=== PATIENT | male | born 1955 | race African-American/Black ===

== ENCOUNTER → 2017-03-26 | Outpatient (CLI) | payer MEDICAID ==
--- NOTE | 2017-03-26 10:30 | RADIOLOGY REPORT (SQ) ---
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 TECHNIQUE: Dynamic and static grayscale images acquired of the abdomen and recorded on PACS. Additio nal selected color Doppler and spectral images recorded. LIMITATIONS: Midline bowel gas FINDINGS: PANCREAS: Not well seen LIVER: Diffuse mild increased echogenicity likely from diffuse hepatocellular disease. No focal mass es. No intrahepatic biliary ductal dilatation LIVER VASCULATURE: Normal directional flow of the main portal vein and hepatic veins. GALLBLADDER: No stones. Normal wall thickness. No pericholecystic fluid. ULTRASOUND-DETECTED GUSTAFSON'S SIGN: Negative. INTRAHEPATIC DUCTS AND COMMON DUCT: CBD and intrahepatic ducts normal caliber. No filling defects. D istal most common duct not well seen due to midline bowel gas INFERIOR VENA CAVA: Normal flow. AORTA: Not well seen RIGHT KIDNEY: Normal size. Normal echogenicity. No solid or suspicious masses. No hydronephros is. No calcifications. LEFT KIDNEY: Post left nephrectomy SPLEEN: Normal size. No solid masses. PERITONEAL AND PLEURAL SPACES: No ascites or effusions. OTHER: No other significant finding. IMPRESSION: Echogenic liver from diffuse hepatocellular disease. No discrete masses. No gallstones. No biliary ductal dilatation Post left nephrectomy TECHNICAL DOCUMENTATION: JOB ID: [id number] [employer]- All Rights Reserved
== END ==
LOC: RAD 07:51
PROVIDERS: ATTEND Internal Medicine Gastroenterology
DX: B18.2 Chronic viral hepatitis C (principal); R94.5 Abnormal results of liver function studies
CPT/HCPCS: 76700

== ENCOUNTER 2017-07-16 14:01 | Emergency (ER) | payer MEDICAID ==
--- NOTE | 2017-07-16 15:17 | ER Document Report ---
ED Substance Abuse / Acc. OD - General Chief Complaint: ETOH Abuse Stated Complaint: ANXIETY Time Seen by Provider: 07/16/17 14:08 Mode of Arrival: Medic Information source: Patient Notes: Patient is a 62-year-old alcoholic who comes in today via EMS for left foot pain. Patient states that he fell last night, does not remember the injury but has left foot pain. He says "I do not know if I fell or if I kicked something. " Patient admits to drinking multiple 40s today. He apparently told EMS that he was anxious but here is just asking for something to eat and stating "I need to eat and go home and watch TV." TRAVEL OUTSIDE OF THE [place] IN LAST 30 DAYS: No - Related Data Allergies/Adverse Reactions: No Known Allergies Allergy (Verified 08/26/12 11:13) Past Medical History - General Information source: Patient - Social History Smoking Status: Current Every Day Smoker Chew tobacco use (# tins/day): No Frequency of alcohol use: Heavy Drug Abuse: None Family History: Reviewed & Not Pertinent Patient has suicidal ideation: No Patient has homicidal ideation: No - Past Medical History Cardiac Medical History: Reports: Hx Hypertension Neurological Medical History: Reports: Hx Cerebrovascular Accident Renal/ Medical History: Denies: Hx Peritoneal Dialysis GI Medical History: Reports: Hx Hepatitis - HEP-C Musculoskeltal Medical History: Reports Hx Gout Infectious Medical History: Reports: Hx Hepatitis - HEP-C Past Surgical History: Reports: Hx Kidney (Renal Surgery) - LEFT NEPHRECTOMY-- DONATED KIDNEY - Immunizations Hx Diphtheria, Pertussis, Tetanus Vaccination: No Review of Systems - Review of Systems Constitutional: See HPI EENT: No symptoms reported Cardiovascular: No symptoms reported Respiratory: No symptoms reported Gastrointestinal: No symptoms reported Genitourinary: No symptoms reported Male Genitourinary: No symptoms reported Musculoskeletal: See HPI Skin: No symptoms reported Hematologic/Lymphatic: No symptoms reported Neurological/Psychological: No symptoms reported Physical Exam - Vital signs Vitals: Resp Pulse Ox 19 95 07/16/17 14:19 07/16/17 14:19 - Notes Notes: PHYSICAL EXAMINATION: GENERAL: Obviously intoxicated, smells of alcohol, but in no acute distress. HEAD: Atraumatic, normocephalic. EYES: Pupils equal round and reactive to light, extraocular movements intact, sclera anicteric, conjunctiva are normal. ENT: ear canals without erythema or foreign body, TMs pearly encarnacion with good bony landmarks, nares patent, oropharynx clear without exudates. Moist mucous membranes. NECK: Normal range of motion, supple without lymphadenopathy LUNGS: CTAB and equal. No wheezes rales or rhonchi. HEART: Regular rate and rhythm without murmurs ABDOMEN: Soft, no tenderness. No guarding, no rebound BACK: no vertebral tenderness, normal ROM GI/: no CVA tenderness EXTREMITIES: Tender to left lateral foot and left second third and fourth digits to the foot, otherwise normal range of motion, no pitting edema. No cyanosis. NEUROLOGICAL: Cranial nerves grossly intact. Normal sensory/motor exams. PSYCH: Intoxicated, but understandable and pleasant SKIN: Warm, Dry, normal turgor, no rashes or lesions noted Course - Re-evaluation Re-evalutation: 07/16/17 18:56 X-ray of the left foot negative for any acute pathology, sister is here to take him home and he is stable for discharge with normal vital signs. We did feed him here. He ate an entire meal without any issues. - Vital Signs Vital signs: Temp Pulse Resp BP Pulse Ox 97.6 F 18 129/93 H 97 07/16/17 15:25 07/16/17 15:25 07/16/17 15:25 07/16/17 15:25 - Laboratory Laboratory results interpreted by me: 07/16/17 13:40 Serum Alcohol 371 H* Discharge - Discharge Clinical Impression: Alcohol abuse, Left foot pain Condition: Stable Disposition: HOME, SELF-CARE Additional Instructions: Return immediately for any new or worsening symptoms. Follow up with primary care provider, call tomorrow to make followup appointment.
[2017-07-16 15:27] VITALS: BP 129/93
--- NOTE | 2017-07-16 15:29 | RADIOLOGY REPORT (SQ) ---
EXAM DESCRIPTION: FOOT LEFT COMPLETE COMPLETED DATE/TIME: 07/16/2017 2:58 pm REASON FOR STUDY: foot injury, pain COMPARISON: 07/06/2012 left foot films NUMBER OF VIEWS: Three views. TECHNIQUE: AP, lateral and oblique radiographic images acquired of the left foot. LIMITATIONS: None. FINDINGS: MINERALIZATION: Osteopenic BONES: No acute fracture or dislocation. No worrisome bone lesions. JOINTS: No effusions. SOFT TISSUES: No soft tissue swelling. No foreign body. OTHER: No other significant finding. IMPRESSION: No acute fracture TECHNICAL DOCUMENTATION: JOB ID: [id number] [employer]- All Rights Reserved Reading location - IP/workstation name: [email or web address]
== END 2017-07-16 15:30 | disposition home or self-care (01) ==
LOC: ER 14:01
DX: F10.10 Alcohol abuse, uncomplicated (principal); M79.672 Pain in left foot; F41.9 Anxiety disorder, unspecified; F17.200 Nicotine dependence, unspecified, uncomplicated
CPT/HCPCS: 36415; 80307; 99284

== ENCOUNTER 2017-08-13 21:19 | Emergency (ER) | payer MEDICAID, OTHER ==
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
--- NOTE | 2017-08-13 21:51 | RADIOLOGY REPORT (SQ) ---
EXAM DESCRIPTION: CT CERVICAL SPINE WITHOUT COMPLETED DATE/TIME: 08/13/2017 9:37 pm REASON FOR STUDY: fall, pain COMPARISON: None. TECHNIQUE: Axial images acquired through the cervical spine without intravenous contrast. Images re viewed with lung, soft tissue and bone windows. Reconstructed coronal and sagittal MPR images review ed. Images stored on PACS. All CT scanners at this facility use dose modulation, iterative reconstruction, and/or weight based d osing when appropriate to reduce radiation dose to as low as reasonably achievable (ALARA). [facility]: Dose Right [facility]: CareDose [facility]: Dose Right [facility]: Teradose 4D [facility]: [employer] RADIATION DOSE: CT Rad equipment meets quality standard of care and radiation dose reduction techniq ues were employed. CTDIvol: 14.8 mGy. DLP: 331 mGy-cm. mGy. LIMITATIONS: None. FINDINGS: ALIGNMENT: Anatomic. MINERALIZATION: Normal. VERTEBRAL BODIES: No fractures or dislocation. DISCS: Multilevel disc space narrowing with osteophytes. FACETS, LATERAL MASSES, POSTERIOR ELEMENTS: Facet arthropathy. No fractures. No dislocation. No ac crow findings. HARDWARE: None in the spine. VISUALIZED RIBS: No fractures. LUNG APICES AND SOFT TISSUES: No significant or acute findings. OTHER: No other significant finding. IMPRESSION: CHRONIC DEGENERATIVE CHANGES. NO ACUTE FINDINGS. TECHNICAL DOCUMENTATION: JOB ID: [id number] Quality ID # [id number]: Final reports with documentation of one or more dose reduction techniques (e.g., Au tomated exposure control, adjustment of the mA and/or kV according to patient size, use of iterative reconstruction technique) 2010 [employer]- All Rights Reserved Reading location - IP/workstation name: [email or web address]
--- NOTE | 2017-08-13 21:53 | RADIOLOGY REPORT (SQ) ---
EXAM DESCRIPTION: CT HEAD WITHOUT COMPLETED DATE/TIME: 08/13/2017 9:37 pm REASON FOR STUDY: fall, hematoma COMPARISON: 08/26/2012 TECHNIQUE: Axial images acquired through the brain without intravenous contrast. Images reviewed wi th bone, brain and subdural windows. Additional sagittal and coronal reconstructions were generated. Images stored on PACS. All CT scanners at this facility use dose modulation, iterative reconstruction, and/or weight based d osing when appropriate to reduce radiation dose to as low as reasonably achievable (ALARA). [facility]: Dose Right [facility]: CareDose [facility]: Dose Right [facility]: Teradose 4D [facility]: Smart [employer] RADIATION DOSE: CT Rad equipment meets quality standard of care and radiation dose reduction techniq ues were employed. CTDIvol: 53.2 mGy. DLP: 964 mGy-cm. mGy. LIMITATIONS: None. FINDINGS: VENTRICLES: Normal size and contour. CEREBRUM: No masses. No hemorrhage. No midline shift. There is an area of encephalomalacia in the occipital lobe on the right. Small areas of low density in the white matter most likely chronic small vessel ischemic changes. CEREBELLUM: No masses. No hemorrhage. No alteration of density. No evidence for acute infarction. EXTRAAXIAL SPACES: No fluid collections. No masses. ORBITS AND GLOBE: No intra- or extraconal masses. Normal contour of globe without masses. CALVARIUM: No fracture. PARANASAL SINUSES: No fluid or mucosal thickening. SOFT TISSUES: Left posterior parietal scalp hematoma. OTHER: No other significant finding. IMPRESSION: Scalp hematoma. Old right occipital infarct. Mild chronic microvascular ischemia with no acute imaging findings in the brain. EVIDENCE OF ACUTE STROKE: NO. COMMENT: Quality ID # [id number]: Final reports with documentation of one or more dose reduction techniques (e.g., Automated exposure control, adjustment of the mA and/or kV according to patient size, use of iterative reconstruction technique) TECHNICAL DOCUMENTATION: JOB ID: [id number] [employer]- All Rights Reserved Reading location - IP/workstation name: [email or web address]
[2017-08-13 22:26] LABS: HEMATOCRIT 40.5 % (37.9-51.0); HEMOGLOBIN 13.7 g/dL (13.5-17.0); MEAN CORPUSCULAR HEMOGLOBIN 33.3 pg (27.0-33.4); MEAN CORPUSCULAR HGB CONC 33.9 g/dL (32.0-36.0); MEAN CORPUSCULAR VOLUME 98 fl (80-97); RED BLOOD COUNT 4.12 10^6/uL (4.35-5.55); RED CELL DISTRIBUTION WIDTH 14.6 % (11.5-14.0); WHITE BLOOD COUNT 4.2 10^3/uL (4.0-10.5)
[2017-08-13 22:45] LABS: INTERNATIONAL RATION (INR) 1.03
[2017-08-13 22:53] LABS: PLATELET COUNT 56 10^3/uL (150-450)
[2017-08-13 22:55] LABS: ALANINE AMINOTRANSFERASE 71 U/L (21-72); ALBUMIN 3.9 g/dL (3.5-5.0); ALKALINE PHOSPHATASE 95 U/L (38-126); ANION GAP 15 (5-19); ASPARTATE AMINO TRANSFERASE 158 U/L (17-59); BILIRUBIN,DIRECT 0.7 mg/dL (0.0-0.4); BLOOD UREA NITROGEN 24 mg/dL (7-20); CALCIUM 9.2 mg/dL (8.4-10.2); CARBON DIOXIDE 25 mmol/L (22-30); CHLORIDE 100 mmol/L (98-107); GLUCOSE 91 mg/dL (75-110); POTASSIUM 3.8 mmol/L (3.6-5.0); SODIUM 140.1 mmol/L (137-145); TOTAL PROTEIN 7.3 g/dL (6.3-8.2)
[2017-08-13 22:58] LABS: ABSOLUTE LYMPHOCYTES# (MANUAL) 2.1 10^3/uL (0.5-4.7); ABSOLUTE MONOCYTES # (MANUAL) 0.5 10^3/uL (0.1-1.4); ABSOLUTE NEUTROPHILS# (MANUAL) 1.6 10^3/uL (1.7-8.2); BASOPHILS % (MANUAL) 2 % (0-2); EOSINOPHILS % (MANUAL) 0 % (0-6); LYMPHOCYTES % (MANUAL) 42 % (13-45); MONOCYTES % (MANUAL) 12 % (3-13); PLATELET COMMENT DECREASED; SEGMENTED NEUTROPHILS % (MAN) 37 % (42-78); TOTAL CELLS COUNTED 100
[2017-08-13 23:00] LABS: HYPOCHROMASIA 1+; POLYCHROMASIA SLIGHT
[2017-08-13] MEDS ORDERED: ACETAMINOPHEN 325 MG TABLET PO ONE (23:12)
[2017-08-13] MEDS ORDERED: NORMAL SALINE 500 ML IV ONE (23:23)
[2017-08-13] MEDS ORDERED: THIAMINE HCL 100 MG TABLET PO ONE (23:46)
[2017-08-13] MEDS ORDERED: FOLIC ACID 1 MG TABLET PO ONE (23:46)
[2017-08-14 00:58] VITALS: BP 136/80
== END 2017-08-14 00:57 | disposition home or self-care (01) ==
LOC: ER 21:19
DX: S09.90XA Unspecified injury of head, initial encounter (principal); N28.9 Disorder of kidney and ureter, unspecified; F10.920 Alcohol use, unspecified with intoxication, uncomplicated; W01.0XXA Fall on same level from slipping, tripping and stumbling without subsequent striking against object, initial encounter; Y92.009 Unspecified place in unspecified non-institutional (private) residence as the place of occurrence of the external cause; I10 Essential (primary) hypertension; Z86.19 Personal history of other infectious and parasitic diseases; Z90.5 Acquired absence of kidney
CPT/HCPCS: 99284; 96360; 36415; 80307; 85025; 85610; 85730; 80053; 70450; 72125; J3490 ×3; J7040

== ENCOUNTER 2017-10-26 17:38 | Emergency (ER) | payer MEDICAID ==
[2017-10-26 17:54] VITALS: BP 156/102
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
[2017-10-26 19:24] LABS: ABSOLUTE BASOPHILS # (AUTO) 0.1 10^3/uL (0.0-0.2); ABSOLUTE EOSINOPHILS # (AUTO) 0.2 10^3/uL (0.0-0.6); ABSOLUTE LYMPHOCYTES (AUTO) 1.8 10^3/uL (0.5-4.7); ABSOLUTE MONOCYTES (AUTO) 0.6 10^3/uL (0.1-1.4); ABSOLUTE NEUT (AUTO) 1.1 10^3/uL (1.7-8.2); BASOPHILS % (AUTO) 2.5 % (0-2); EOSINOPHILS % (AUTO) 4.3 % (0-6); HEMATOCRIT 42.7 % (37.9-51.0); HEMOGLOBIN 14.8 g/dL (13.5-17.0); LYMPHOCYTES % (AUTO) 47.4 % (13-45); MEAN CORPUSCULAR HEMOGLOBIN 33.7 pg (27.0-33.4); MEAN CORPUSCULAR HGB CONC 34.6 g/dL (32.0-36.0); MEAN CORPUSCULAR VOLUME 97 fl (80-97); MONOCYTES % (AUTO) 15.6 % (3-13); RED BLOOD COUNT 4.39 10^6/uL (4.35-5.55); RED CELL DISTRIBUTION WIDTH 14.3 % (11.5-14.0); SEGMENTED NEUTROPHILS % (AUTO) 30.2 % (42-78); TOTAL CELLS COUNTED % (AUTO) 100 %; WHITE BLOOD COUNT 3.7 10^3/uL (4.0-10.5)
--- NOTE | 2017-10-26 19:28 | RADIOLOGY REPORT (SQ) ---
EXAM DESCRIPTION: CT HEAD WITHOUT COMPLETED DATE/TIME: 10/26/2017 7:13 pm REASON FOR STUDY: concern for subdural COMPARISON: 08/13/2017 TECHNIQUE: Axial images acquired through the brain without intravenous contrast. Images reviewed wi th bone, brain and subdural windows. Additional sagittal and coronal reconstructions were generated. Images stored on PACS. All CT scanners at this facility use dose modulation, iterative reconstruction, and/or weight based d osing when appropriate to reduce radiation dose to as low as reasonably achievable (ALARA). [facility]: Dose Right [facility]: CareDose [facility]: Dose Right [facility]: Teradose 4D [facility]: [employer] RADIATION DOSE: CT Rad equipment meets quality standard of care and radiation dose reduction techniq ues were employed. CTDIvol: 53.2 mGy. DLP: 1017 mGy-cm. mGy. LIMITATIONS: None. FINDINGS: VENTRICLES: Mild ex vacuo dilatation. CEREBRUM: No masses. No hemorrhage. No midline shift. Right occipital encephalomalacia, stable. A reas of low density in the white matter most likely due to chronic micro-vascular ischemic change. N o evidence for acute infarction. CEREBELLUM: No masses. No hemorrhage. No alteration of density. No evidence for acute infarction. EXTRAAXIAL SPACES: Mild age-related involutional change. No fluid collections. No masses. ORBITS AND GLOBE: No intra- or extraconal masses. Normal contour of globe without masses. CALVARIUM: No fracture. PARANASAL SINUSES: No fluid or mucosal thickening. SOFT TISSUES: No mass or hematoma. OTHER: No other significant finding. IMPRESSION: No evidence of calvarial injury or intracranial hemorrhage. Table background of right o ccipital encephalomalacia on a background of mild microvascular and involutional changes. EVIDENCE OF ACUTE STROKE: NO. TECHNICAL DOCUMENTATION: JOB ID: [id number] Quality ID # [id number]: Final reports with documentation of one or more dose reduction techniques (e.g., Au tomated exposure control, adjustment of the mA and/or kV according to patient size, use of iterative reconstruction technique) 2010 [employer]- All Rights Reserved Reading location - IP/workstation name: [email or web address]
[2017-10-26 19:42] LABS: ALANINE AMINOTRANSFERASE 69 U/L (21-72); ALBUMIN 3.9 g/dL (3.5-5.0); ALKALINE PHOSPHATASE 145 U/L (38-126); ANION GAP 14 (5-19); ASPARTATE AMINO TRANSFERASE 178 U/L (17-59); BILIRUBIN,DIRECT 0.8 mg/dL (0.0-0.4); BILIRUBIN,TOTAL 1.1 mg/dL (0.2-1.3); BLOOD UREA NITROGEN 5 mg/dL (7-20); CALCIUM 8.6 mg/dL (8.4-10.2); CARBON DIOXIDE 30 mmol/L (22-30); CHLORIDE 106 mmol/L (98-107); GLUCOSE 85 mg/dL (75-110); SODIUM 149.8 mmol/L (137-145); TOTAL PROTEIN 7.9 g/dL (6.3-8.2)
[2017-10-26 19:55] LABS: ALCOHOL 340 mg/dL (NONE DETECTED)
--- NOTE | 2017-10-26 20:02 | ER Document Report ---
ED Headache - General Chief Complaint: Headache Stated Complaint: HEADACHE Time Seen by Provider: 10/26/17 18:53 Mode of Arrival: Ambulatory Information source: Patient TRAVEL OUTSIDE OF THE [place] IN LAST 30 DAYS: No - HPI Patient complains to provider of: Headache Onset: Yesterday Onset was: Gradual Timing: Still present Quality of pain: Achy, Fullness Severity: Mild Associated symptoms: None Notes: Patient is a 62-year-old male presenting to the emergency room today complaining of frontal headache 2 days duration, he does report a fall recently and has a history of alcohol abuse, he denies any blurred vision, no nausea or vomiting, no chest pain or shortness of breath, denies any neck pain as well, no numbness or tingling in his extremities - Related Data Allergies/Adverse Reactions: No Known Allergies Allergy (Verified 10/26/17 17:42) Past Medical History - General Information source: Patient - Social History Smoking Status: Current Every Day Smoker Frequency of alcohol use: Heavy Drug Abuse: Marijuana Family History: Reviewed & Not Pertinent Patient has suicidal ideation: No Patient has homicidal ideation: No - Past Medical History Cardiac Medical History: Reports: Hx Hypertension Neurological Medical History: Reports: Hx Cerebrovascular Accident Renal/ Medical History: Denies: Hx Peritoneal Dialysis GI Medical History: Reports: Hx Hepatitis - HEP-C Musculoskeletal Medical History: Reports Hx Gout Infectious Medical History: Reports: Hx Hepatitis - HEP-C Past Surgical History: Reports: Hx Kidney (Renal Surgery) - LEFT NEPHRECTOMY-- DONATED KIDNEY - Immunizations Hx Diphtheria, Pertussis, Tetanus Vaccination: No Review of Systems - Review of Systems Constitutional: No symptoms reported EENT: No symptoms reported Cardiovascular: No symptoms reported Respiratory: No symptoms reported Gastrointestinal: No symptoms reported Genitourinary: No symptoms reported Male Genitourinary: No symptoms reported Musculoskeletal: No symptoms reported Skin: No symptoms reported Hematologic/Lymphatic: No symptoms reported Neurological/Psychological: Headaches -: Yes All other systems reviewed and negative Physical Exam - Vital signs Vitals: Temp Pulse Resp BP Pulse Ox 98.7 F 85 14 156/102 H 98 10/26/17 17:49 10/26/17 17:49 10/26/17 17:49 10/26/17 17:49 10/26/17 17:49 Interpretation: Normal - General General appearance: Alert In distress: None Notes: EtOH on breath - HEENT Head: Normocephalic, Atraumatic Eyes: Normal Pupils: PERRL - Respiratory Respiratory status: No respiratory distress Chest status: Nontender Breath sounds: Normal Chest palpation: Normal - Cardiovascular Rhythm: Regular Heart sounds: Normal auscultation Murmur: No - Abdominal Inspection: Normal Distension: No distension Bowel sounds: Normal Tenderness: Nontender Organomegaly: No organomegaly - Back Back: Normal, Nontender - Extremities General upper extremity: Normal inspection, Nontender, Normal color, Normal ROM , Normal temperature General lower extremity: Normal inspection, Nontender, Normal color, Normal ROM , Normal temperature, Normal weight bearing. No: Liliya's sign - Neurological Neuro grossly intact: Yes Cognition: Normal Orientation: AAOx4 Fani Coma Scale Eye Opening: Spontaneous [place] Coma Scale Verbal: Oriented Fani Coma Scale Motor: Obeys Commands Fani Coma Scale Total: 15 Speech: Normal Motor strength normal: LUE, RUE, LLE, RLE Sensory: Normal - Psychological Associated symptoms: Normal affect, Normal mood - Skin Skin Temperature: Warm Skin Moisture: Dry Skin Color: Normal Course - Re-evaluation Re-evalutation: 10/26/17 20:05 Notified by nursing staff that patient eloped from the department prior to completion of treatment - Vital Signs Vital signs: Temp Pulse Resp BP Pulse Ox 98.7 F 85 14 156/102 H 98 10/26/17 17:49 10/26/17 17:49 10/26/17 17:49 10/26/17 17:49 10/26/17 17:49 - Laboratory Result Diagrams: 10/26/17 19:01 10/26/17 19:01 Laboratory results interpreted by me: 10/26/17 10/26/17 10/26/17 19:01 19:01 19:01 WBC 3.7 L MCH 33.7 H RDW 14.3 H Plt Count 97 L Seg Neutrophils % 30.2 L Lymphocytes % 47.4 H Monocytes % 15.6 H Basophils % 2.5 H Absolute Neutrophils 1.1 L Sodium 149.8 H BUN 5 L Direct Bilirubin 0.8 H AST 178 H Alkaline Phosphatase 145 H Ammonia < 8.7 L Serum Alcohol 340 H* - Diagnostic Test Radiology reviewed: Image reviewed, Reports reviewed Discharge - Discharge Disposition: ELOPED
[2017-10-26 20:03] LABS: PLATELET COUNT 97 10^3/uL (150-450)
== END 2017-10-26 20:00 | disposition left against medical advice (07) ==
LOC: ER 17:38
DX: R51 Headache (principal); F17.200 Nicotine dependence, unspecified, uncomplicated; I10 Essential (primary) hypertension; Z86.19 Personal history of other infectious and parasitic diseases
CPT/HCPCS: 36415; 70450; 80053; 80307; 82140; 85025; 85652; 86140; 99281

== ENCOUNTER 2018-02-24 15:57 | Emergency (ER) | payer MEDICAID ==
[2018-02-24] MEDS ORDERED: INDOMETHACIN 50 MG CAPSULE PO ONE (17:14)
--- NOTE | 2018-02-24 17:18 | ER Document Report ---
HPI - HPI Time Seen by Provider: 02/24/18 17:02 Pain Level: 5 Notes: Patient is a 62-year-old male who presents with chief complaint of left second toe pain. He reports the pain started just a few hours prior to arrival. Patient reports he has been drinking a lot of alcohol. He has two family members at the bedside with him. He reports he thinks he is having a flareup of his gout. He denies any other symptoms to include fever. Denies any trauma to the area. - REPRODUCTIVE Reproductive: DENIES: : - DERM Skin Color: Normal Past Medical History - General Information source: Patient - Social History Smoking Status: Current Every Day Smoker Chew tobacco use (# tins/day): No Frequency of alcohol use: Heavy Drug Abuse: None Family History: Reviewed & Not Pertinent Patient has suicidal ideation: No Patient has homicidal ideation: No - Past Medical History Cardiac Medical History: Reports: Hx Hypertension Neurological Medical History: Reports: Hx Cerebrovascular Accident Renal/ Medical History: Denies: Hx Peritoneal Dialysis GI Medical History: Reports: Hx Hepatitis - HEP-C Musculoskeletal Medical History: Reports Hx Gout Infectious Medical History: Reports: Hx Hepatitis - HEP-C Past Surgical History: Reports: Hx Kidney (Renal Surgery) - LEFT NEPHRECTOMY--DONATED KIDNEY - Immunizations Hx Diphtheria, Pertussis, Tetanus Vaccination: No Vertical Provider Document - CONSTITUTIONAL Notes: PHYSICAL EXAMINATION: GENERAL: Well-appearing, well-nourished and in no acute distress. HEAD: Atraumatic, normocephalic. EYES: Pupils equal round extraocular movements intact, conjunctiva are normal. ENT: Nares patent NECK: Normal range of motion LUNGS: No respiratory distress Musculoskeletal: Normal range of motion NEUROLOGICAL: Normal speech, normal gait. PSYCH: Normal mood, normal affect. SKIN: Warm, Dry, normal turgor, no rashes or lesions noted. Erythema and swelling noted to left second digit. Pain with palpation to left second digit. - INFECTION CONTROL TRAVEL OUTSIDE OF THE [place] IN LAST 30 DAYS: No Course - Re-evaluation Re-evalutation: Examination as well as history of illness is most consistent with acute gout flareup. Patient will be started on indomethacin. Patient and family members at bedside are agreeable to this plan. - Vital Signs Vital signs: Temp Pulse Resp BP Pulse Ox 98.5 F 88 15 150/107 H 98 02/24/18 16:38 02/24/18 16:38 02/24/18 16:38 02/24/18 16:38 02/24/18 16:38 Discharge - Discharge Clinical Impression: Gout Qualifiers: Gout site: unspecified site Gout etiology: unspecified cause Chronicity: acute Qualified Code(s): M10.9 - Gout, unspecified Condition: Stable Disposition: HOME, SELF-CARE Additional Instructions: Gout You have been diagnosed as having gout. Gout is a problem caused by an excess of uric acid, a natural chemical found in the body. The cause of this disease is unknown. Gout arthritis occurs when crystals of uric acid form in the joints. The big toe is the most common joint involved, but any joint can become affected. Persons with gout may also form uric acid kidney stones, resulting in flank pain and blood in the urine. Nodules of uric acid may form under the skin. The first step of treatment is to decrease the inflammation in the joint with antiinflammatory medication. Medication to lower the uric acid level in the blood may then be prescribed. This medication should be taken regularly, as any sudden change in dosage may provoke an attack of gout. Some foods, such as red meat, can provoke an attack in some gout sufferers. Call the doctor if new symptoms arise, or if you do not improve. Gout Diet Changing your diet can decrease the uric acid in your blood. High levels of uric acid cause gouty arthritis and uric acid kidney stones. If you have gout, you should avoid meats that are high in purine. Meat products to avoid include liver, kidneys, and brains. In general, poultry is better than red meats. Seafoods to avoid include anchovies, sardines, [place], mackerel, and scallops. In addition to limiting purine-rich foods, people with gout should limit protein intake to 10-15% of total calories. Carbohydrate intake should be around 50% of total daily calories. Limit fat intake to 30% of total daily calories. Cholesterol intake should be less than 300 mg/day. Maintain or achieve a healthy body weight. Weight loss should be gradual. Rapid weight loss can actually increase uric acid levels temporarily. Alcohol, especially beer, should be avoided. Get plenty of fluids. This dilutes urinary uric acid, and helps prevent uric acid kidney stones. Drink eight to twelve cups of water daily. Prescriptions: Indomethacin [Indocin 50 mg Capsule] 50 mg PO TID #30 capsule
[2018-02-24 17:41] VITALS: BP 152/104
== END 2018-02-24 17:37 | disposition home or self-care (01) ==
LOC: ER 15:57
DX: M10.9 Gout, unspecified (principal); M25.572 Pain in left ankle and joints of left foot; F17.200 Nicotine dependence, unspecified, uncomplicated; I10 Essential (primary) hypertension; Z86.73 Personal history of transient ischemic attack (TIA), and cerebral infarction without residual deficits; Z86.19 Personal history of other infectious and parasitic diseases
CPT/HCPCS: 99283; J3490

== ENCOUNTER 2018-06-12 14:31 | Emergency (ER) | payer MEDICAID ==
[2018-06-12 15:19] VITALS: BP 133/65
[2018-06-12 15:28] LABS: ABSOLUTE MONOCYTES (AUTO) 0.4 10^3/uL (0.1-1.4); BASOPHILS % (AUTO) 1.2 % (0-2); EOSINOPHILS % (AUTO) 1.2 % (0-6); HEMATOCRIT 38.8 % (37.9-51.0); HEMOGLOBIN 13.3 g/dL (13.5-17.0); LYMPHOCYTES % (AUTO) 28.5 % (13-45); MEAN CORPUSCULAR HEMOGLOBIN 33.6 pg (27.0-33.4); MEAN CORPUSCULAR HGB CONC 34.3 g/dL (32.0-36.0); MEAN CORPUSCULAR VOLUME 98 fl (80-97); MONOCYTES % (AUTO) 11.1 % (3-13); RED BLOOD COUNT 3.96 10^6/uL (4.35-5.55); RED CELL DISTRIBUTION WIDTH 13.6 % (11.5-14.0); TOTAL CELLS COUNTED % (AUTO) 100 %; WHITE BLOOD COUNT 3.4 10^3/uL (4.0-10.5)
[2018-06-12 15:47] LABS: ALANINE AMINOTRANSFERASE 60 U/L (21-72); ALBUMIN 3.4 g/dL (3.5-5.0); ALCOHOL 281 mg/dL (NONE DETECTED); ALKALINE PHOSPHATASE 209 U/L (38-126); ANION GAP 12 (5-19); ASPARTATE AMINO TRANSFERASE 227 U/L (17-59); BILIRUBIN,DIRECT 1.5 mg/dL (0.0-0.4); BILIRUBIN,TOTAL 2.2 mg/dL (0.2-1.3); BLOOD UREA NITROGEN 10 mg/dL (7-20); CALCIUM 8.7 mg/dL (8.4-10.2); CARBON DIOXIDE 26 mmol/L (22-30); CHLORIDE 102 mmol/L (98-107); GLUCOSE 133 mg/dL (75-110); POTASSIUM 3.8 mmol/L (3.6-5.0); SODIUM 139.9 mmol/L (137-145); TOTAL PROTEIN 7.7 g/dL (6.3-8.2)
[2018-06-12 15:58] LABS: PLATELET COUNT 38 10^3/uL (150-450)
--- NOTE | 2018-06-12 18:35 | ER Document Report ---
Entered by NBA DOMINGUEZ SCRIBE 06/12/18 1448 Acting as scribe for:JOSS JURADO DO ED General - General Chief Complaint: ETOH Abuse Stated Complaint: WEAKNESS Time Seen by Provider: 06/12/18 14:37 Mode of Arrival: Ambulatory Information source: Patient Notes: 62-year-old male who presents to the emergency department today with complaints of bilateral leg weakness. The patient's only complaint is that for the last few days, when he is walking, sometimes his "legs give out". Patient states he has not hit his head during these falls. EMS stated that he was able to ambulate to the squad without difficulty. EMS also reported that they believe if they would have had food to give the patient, he likely would not have wanted to come to the emergency department as it appeared his main concern for them was his hunger. TRAVEL OUTSIDE OF THE [place] IN LAST 30 DAYS: No - Related Data Allergies/Adverse Reactions: No Known Allergies Allergy (Verified 02/24/18 15:58) Past Medical History - General Information source: Patient - Social History Smoking Status: Current Every Day Smoker Cigarette use (# per day): Yes Frequency of alcohol use: Heavy Drug Abuse: None Lives with: Family Family History: Reviewed & Not Pertinent Patient has suicidal ideation: No Patient has homicidal ideation: No - Past Medical History Cardiac Medical History: Reports: Hx Hypertension Neurological Medical History: Reports: Hx Cerebrovascular Accident Renal/ Medical History: Denies: Hx Peritoneal Dialysis GI Medical History: Reports: Hx Hepatitis - HEP-C Musculoskeletal Medical History: Reports Hx Gout Infectious Medical History: Reports: Hx Hepatitis - HEP-C Past Surgical History: Reports: Hx Kidney (Renal Surgery) - LEFT NEPHRECTOMY-- DONATED KIDNEY - Immunizations Hx Diphtheria, Pertussis, Tetanus Vaccination: No Review of Systems - Review of Systems Constitutional: No symptoms reported EENT: No symptoms reported Cardiovascular: No symptoms reported Respiratory: No symptoms reported Gastrointestinal: No symptoms reported Genitourinary: No symptoms reported Male Genitourinary: No symptoms reported Musculoskeletal: See HPI, Other - bilateral leg weakness Skin: No symptoms reported Hematologic/Lymphatic: No symptoms reported Neurological/Psychological: No symptoms reported -: Yes All other systems reviewed and negative Physical Exam - Vital signs Vitals: Temp Pulse Resp BP Pulse Ox 98.0 F 85 16 133/65 H 98 06/12/18 14:39 06/12/18 14:39 06/12/18 14:39 06/12/18 14:39 06/12/18 14:39 - Notes Notes: PHYSICAL EXAM GENERAL: Alert, interacts well. No acute distress. HEAD: Normocephalic, atraumatic. EYES: Pupils equal, round, and reactive to light. Extraocular movements intact. ENT: Oral mucosa moist, tongue midline. NECK: Full range of motion. Supple. Trachea midline. LUNGS: Upper lung justice are rhonchorous with wheezing bilaterally with forced expiration. Lower lung justice are clear bilaterally. No respiratory distress. HEART: Regular rate and rhythm. No murmurs, gallops, or rubs. ABDOMEN: Soft, non-tender. Non-distended. Bowel sounds present in all 4 quadrants. No guarding, rigidity, or rebound. EXTREMITIES: Moves all 4 extremities spontaneously. No edema, radial and dorsalis pedis pulses 2/4 bilaterally. No cyanosis. NEUROLOGICAL: Alert and oriented x3. Normal speech. PSYCH: Normal affect, normal mood. SKIN: Warm, dry, normal turgor. Large thickened toenails. Course - Re-evaluation Re-evalutation: 06/12/18 17:23 CBC shows pancytopenia consistent with alcoholism, white blood cell count is 3.4, hemoglobin is 13.3, platelets are quite low at 38. Patient has no bleeding at this time, no swollen joints, no petechiae, no altered mental status. No indication for emergent treatment of his thrombocytopenia. Alcohol level is 281. CMP does show liver disease likely related to alcoholism, ammonia is normal at 13.1. After the patient ate he stated that he was ready to go home now and would like to be discharged now. Was able to walk from the ambulance into his bed without any difficulty. No focal neurologic deficits. No need for further intervention. Discharged home. - Vital Signs Vital signs: Temp Pulse Resp BP Pulse Ox 98.0 F 85 16 133/65 H 98 06/12/18 14:39 06/12/18 14:39 06/12/18 14:39 06/12/18 14:39 06/12/18 14:39 - Laboratory Result Diagrams: 06/12/18 14:55 06/12/18 14:55 Laboratory results interpreted by me: 06/12/18 06/12/18 14:55 14:55 WBC 3.4 L RBC 3.96 L Hgb 13.3 L MCV 98 H MCH 33.6 H Plt Count 38 L Glucose 133 H Total Bilirubin 2.2 H Direct Bilirubin 1.5 H AST 227 H Alkaline Phosphatase 209 H Albumin 3.4 L Discharge - Discharge Clinical Impression: Difficulty walking, Alcoholism, Alcoholic liver disease, Thrombocytopenia Hunger Qualifiers: Encounter type: initial encounter Qualified Code(s): T73.0XXA - Starvation, initial encounter Condition: Stable Disposition: HOME, SELF-CARE Additional Instructions: There are many food pantry as were food is available. If you are having trouble locating a food pantry you may call the emergency department and ask us where to find a food pantry. We have given you list of resources in the community that will help you to find food and will also help you to quit drinking. I personally performed the services described in the documentation, reviewed and edited the documentation which was dictated to the scribe in my presence, and it accurately records my words and actions.
== END 2018-06-12 17:57 | disposition home or self-care (01) ==
LOC: ER 14:31
DX: T73.0XXA Starvation, initial encounter (principal); R26.2 Difficulty in walking, not elsewhere classified; D69.6 Thrombocytopenia, unspecified; K70.9 Alcoholic liver disease, unspecified; F10.288 Alcohol dependence with other alcohol-induced disorder; R53.1 Weakness; I10 Essential (primary) hypertension; Z86.19 Personal history of other infectious and parasitic diseases; F17.210 Nicotine dependence, cigarettes, uncomplicated; Z91.81 History of falling
CPT/HCPCS: 36415; 80053; 80307; 82140; 85025; 99284